=== PATIENT | female | born 1935 | race Caucasian/White ===

== ENCOUNTER 2020-07-20 15:03 | Outpatient (CLI) | payer MEDICARE, OTHER | END 2020-07-20 15:04 | disposition home or self-care (01) | LOC: ULT 15:03 | PROVIDERS: ATTEND Internal Medicine | DX: I74.9 Embolism and thrombosis of unspecified artery (principal); I08.3 Combined rheumatic disorders of mitral, aortic and tricuspid valves | CPT/HCPCS: 93306 ==

== ENCOUNTER 2020-08-04 14:56 | Outpatient (CLI) | payer MEDICARE, OTHER ==
[2020-08-04 16:34] LABS: PTT 30.7 sec (22.0-33.0); Prothrombin Time 10.9 sec (9.5-12.1)
[2020-08-04 16:58] LABS: Anion Gap 14 mmol/L (10-20); BUN (Urea Nitrogen) 26 mg/dL (9.8-20.1); Calc. Creatinine Clearance 0 mL/min (70-130); Calcium 9.9 mg/dL (7.8-10.44); Carbon Dioxide 28 mmol/L (23-31); Glucose 184 mg/dL (83-110); Potassium 4.6 mmol/L (3.5-5.1)
[2020-08-04 17:02] LABS: Chloride 101 mmol/L (98-107); Sodium 138 mmol/L (136-145)
[2020-08-05 02:36] LABS: SARS-CoV-2 PCR by NAA Not Detected (NotDetected)
== END 2020-08-04 14:57 | disposition home or self-care (01) ==
LOC: LABBT 14:56
PROVIDERS: ATTEND Internal Medicine Cardiovascular Disease
DX: Z01.818 Encounter for other preprocedural examination (principal); I34.0 Nonrheumatic mitral (valve) insufficiency; Z20.822 Contact with and (suspected) exposure to COVID-19
CPT/HCPCS: 80048; 85610; 85730; U0003; U0005; 87635; 93005; 93010

== ENCOUNTER 2020-08-09 05:50 | Day surgery (SDC) | payer MEDICARE, OTHER ==
[2020-08-05 14:35] VITALS: BMI 20.8
[2020-08-09] MEDS ORDERED: PROPOFOL 20 ML ONE (08:00)
== END 2020-08-09 10:25 | disposition home or self-care (01) ==
LOC: SDC 05:50
PROVIDERS: ATTEND Internal Medicine Cardiovascular Disease
PROC: B24BZZ4 Ultrasonography of Heart with Aorta, Transesophageal (ICD-10-PCS; principal; 2020-08-09)
DX: I08.0 Rheumatic disorders of both mitral and aortic valves (principal); M79.674 Pain in right toe(s); M79.675 Pain in left toe(s); Z79.01 Long term (current) use of anticoagulants; Z79.899 Other long term (current) drug therapy
CPT/HCPCS: 93312; J2704